=== PATIENT | female | born 1990 | race American Indian/Alaskan Native ===

== ENCOUNTER 2021-11-14 09:30 | Outpatient (CLI) | payer OTHER | END 2021-11-14 10:30 | disposition home or self-care (01) | LOC: NST 09:30 | PROVIDERS: ATTEND Obstetrics & Gynecology | DX: O16.2 Unspecified maternal hypertension, second trimester (principal); Z3A.27 27 weeks gestation of pregnancy ==

== ENCOUNTER 2021-12-19 12:47 | Outpatient (CLI) | payer OTHER | END 2021-12-19 13:12 | disposition home or self-care (01) | LOC: NST 12:47 | PROVIDERS: ATTEND Obstetrics & Gynecology Maternal & Fetal Medicine | DX: Z34.83 Encounter for supervision of other normal pregnancy, third trimester (principal) ==

== ENCOUNTER 2021-12-27 10:44 | Inpatient (IN) | payer OTHER ==
[~2021-12-27] VITALS: Ht 167.6 cm; Wt 1.8 kg
[2021-12-27] MEDS ORDERED: PRENATABS RX T1 EACH PO (14:26)
[2021-12-27] MEDS ORDERED: SINGULAIR10 MG PO (14:27)
[2021-12-27] MEDS ORDERED: TOPROL XL25 M1 PO (14:28)
[2021-12-27] MEDS ORDERED: GLUMETZA500 MG PO (14:29)
[2021-12-29] MEDS ORDERED: CETIRIZINE HCL10 MG (10:26)
[2021-12-29] MEDS ORDERED: FLUTICASONE-SA1 EAC3 (10:26)
[2022-01-01] MEDS ORDERED: KETO10TA2 PO (07:57)
[2022-01-01] MEDS ORDERED: OXYC1TAB9 PO (07:57)
== END 2022-01-01 13:24 | disposition home or self-care (01) | DRG 786 ==
LOC: LDR 10:44 → O/R 12-29 10:10 → OB/GYN 12-29 11:36
PROVIDERS: ADMIT Obstetrics & Gynecology; ATTEND Obstetrics & Gynecology
PROC: 4A1HXCZ Monitoring of Products of Conception, Cardiac Rate, External Approach (ICD-10-PCS; 2021-12-27)
PROC: 10D00Z1 Extraction of Products of Conception, Low, Open Approach (ICD-10-PCS; principal; 2021-12-29 09:15)
DX: O76 Abnormality in fetal heart rate and rhythm complicating labor and delivery (principal); O60.14X0 Preterm labor third trimester with preterm delivery third trimester, not applicable or unspecified; Z3A.33 33 weeks gestation of pregnancy; Z37.0 Single live birth; Z20.822 Contact with and (suspected) exposure to COVID-19